=== PATIENT | female | born 1945 | race Asian ===

== ENCOUNTER 2018-03-05 18:28 | Emergency (ER) | payer MEDICARE, MEDICAID ==
[~2018-03-05] VITALS: Ht 149.9 cm; Wt 57.7 kg
[~2018-03-05 18:28] MED LIST: LEVO25TA9 PO; LISI-660 PO
[2018-03-05 20:32] LABS: BASOPHILS % (AUTO) 1.3 % (0.0-2.0); EOSINOPHILS % (AUTO) 2.9 % (1.0-6.0); HEMATOCRIT 38.8 % (36-46); HEMOGLOBIN 13.2 g/dL (12.0-16.0); LYMPHOCYTES # (AUTO) 2.3 K/uL (1.0-4.8); LYMPHOCYTES % (AUTO) 43.9 % (22.0-44.0); MEAN CORPUSCULAR HEMOGLOBIN 33.3 pg (26.0-34.0); MEAN CORPUSCULAR HGB CONC 34.1 G/dL (31.0-37.0); MEAN CORPUSCULAR VOLUME 98 fL (80-100); MONOCYTES # (AUTO) 0.5 K/uL (0.1-1.0); MONOCYTES % (AUTO) 9.2 % (2.0-9.0); NEUTROPHILS # (AUTO) 2.2 K/uL (1.8-7.7); NEUTROPHILS % (AUTO) 42.7 % (40.0-70.0); PLATELET COUNT (AUTO) 246 K/uL (150-450); RED BLOOD CELL COUNT(AUTO) 3.98 MIL/uL (4.00-5.20); RED CELL DISTRIBUTION WIDTH 14.4 % (11.5-14.5)
[2018-03-05 21:17] LABS: INR 0.9 (0.9-1.1); PROTHROMBIN TIME 9.6 SEC (9.4-11.6)
[2018-03-05 21:22] LABS: ANION GAP 6 mmol/L (8-16); CALCIUM, TOTAL 8.5 mg/dL (8.8-10.5); CARBON DIOXIDE 30 mmol/L (22-29); CHLORIDE 104 mmol/L (98-107); CREATININE 0.67 mg/dL (0.60-1.30); GLOMERULAR FILTR. RATE CALC > 60 mL/min (>60); GLUCOSE,RANDOM 101 mg/dL (70-110); POTASSIUM 3.7 mmol/L (3.5-5.1); SODIUM SERUM 140 mmol/L (136-145); UREA NITROGEN, BLOOD 15 mg/dL (7-18)
[2018-03-05 21:29] LABS: ALANINE AMINOTRANSFERASE 32 U/L (12-78); ALBUMIN 3.5 g/dL (3.4-5.0); ALKALINE PHOSPHATASE 85 U/L (46-116); ASPARTATE AMINOTRANSFERASE 28 U/L (15-37); BILIRUBIN,TOTAL 0.4 mg/dL (0.1-1.0); CREATINE KINASE, TOTAL ONLY 51 U/L (26-192); TOTAL PROTEIN, SERUM 7.6 g/dL (6.4-8.2)
[2018-03-05 22:19] LABS: APPEARANCE,URINE CLEAR (CLEAR); BILIRUBIN,URINE NEGATIVE (NEGATIVE); GLUCOSE, URINE (UA) NEGATIVE (NEGATIVE); KETONES,URINE NEGATIVE (NEGATIVE); LEUKOCYTE ESTERASE ,URINE TRACE (NEGATIVE); NITRATE,URINE NEGATIVE (NEGATIVE); OCCULT BLOOD,URINE TRACE (NEGATIVE); PH,URINE 6.5 (5.0-8.0); PROTEIN,URINE NEGATIVE (NEGATIVE); UROBILINOGEN,URINE 0.2 mg/dL (<=1.0)
[2018-03-05 22:32] LABS: BACTERIA,URINE None Seen /HPF (None Seen); RBC,URINE 0-2 /HPF (0-2); SQUAMOUS EPITHELIAL CELL,UR Few /LPF (None Seen); WBC,URINE 0-2 /HPF (0-5)
[2018-03-06 02:15] VITALS: BP 155/74
== END 2018-03-06 02:19 | disposition home or self-care (01) ==
LOC: EMS 18:28
DX: R07.9 Chest pain, unspecified (principal); I10 Essential (primary) hypertension; E03.9 Hypothyroidism, unspecified; K21.9 Gastro-esophageal reflux disease without esophagitis; Z88.0 Allergy status to penicillin
CPT/HCPCS: 93005

== ENCOUNTER 2022-07-02 02:07 | Emergency (ER) | payer MEDICARE, MEDICAID ==
[~2022-07-02] VITALS: Ht 149.9 cm; Wt 58.8 kg
[~2022-07-02 02:07] MED LIST changes: -LISI-660 PO
[2022-07-02] MEDS ORDERED: FERR325T27 PO (02:15)
[2022-07-02] MEDS ORDERED: LISI-894 PO (02:15)
[2022-07-02] MEDS ORDERED: CloNIDine HCL 0.1 MG TABLET PO ONE (04:45)
[2022-07-02 05:07] LABS: BASOPHILS % (AUTO) 0.7 % (0.0-2.0); HEMATOCRIT 35.4 % (36-46); HEMOGLOBIN 11.9 g/dL (12.0-16.0); LYMPHOCYTES % (AUTO) 36.7 % (22.0-44.0); MEAN CORPUSCULAR HEMOGLOBIN 33.8 pg (26.0-34.0); MEAN CORPUSCULAR HGB CONC 33.6 G/dL (31.0-37.0); MEAN CORPUSCULAR VOLUME 101 fL (80-100); MONOCYTES # (AUTO) 0.4 K/uL (0.1-1.0); NEUTROPHILS # (AUTO) 2.8 K/uL (1.8-7.7); NEUTROPHILS % (AUTO) 51.6 % (40.0-70.0); PLATELET COUNT (AUTO) 220 K/uL (150-450); RED BLOOD CELL COUNT(AUTO) 3.51 MIL/uL (4.00-5.20); RED CELL DISTRIBUTION WIDTH 16.7 % (11.5-14.5)
[2022-07-02 05:23] LABS: ANION GAP 4 mmol/L (8-16); CALCIUM, TOTAL 9.1 mg/dL (8.8-10.5); CARBON DIOXIDE 29 mmol/L (22-29); CHLORIDE 103 mmol/L (98-107); CREATININE 0.82 mg/dL (0.60-1.30); GLOMERULAR FILTR. RATE CALC > 60 mL/min (>60); GLUCOSE,RANDOM 109 mg/dL (70-110); POTASSIUM 4.1 mmol/L (3.5-5.1); SODIUM SERUM 136 mmol/L (136-145); UREA NITROGEN, BLOOD 23 mg/dL (7-18)
[2022-07-02 05:29] LABS: ALBUMIN 3.5 g/dL (3.4-5.0); ALKALINE PHOSPHATASE 71 U/L (46-116); ASPARTATE AMINOTRANSFERASE 23 U/L (15-37); BILIRUBIN,TOTAL 0.3 mg/dL (0.1-1.0); CREATINE KINASE, TOTAL ONLY 45 U/L (26-192); TOTAL PROTEIN, SERUM 7.1 g/dL (6.4-8.2)
[2022-07-02 05:41] LABS: ALANINE AMINOTRANSFERASE 24 U/L (12-78)
[2022-07-02 05:56] LABS: B-TYPE NATRIURETIC PEPTIDE 35 pg/mL (0-100)
[2022-07-02 07:33] VITALS: BP 116/55
== END 2022-07-02 07:55 | disposition home or self-care (01) ==
LOC: EMS 02:10
DX: I10 Essential (primary) hypertension (principal); R07.89 Other chest pain; E03.9 Hypothyroidism, unspecified; Z90.49 Acquired absence of other specified parts of digestive tract; Z90.710 Acquired absence of both cervix and uterus; Z98.890 Other specified postprocedural states; Z88.8 Allergy status to other drugs, medicaments and biological substances
CPT/HCPCS: 71045; 80053; 82550; 83880; 84484; 85025; 93005; 99285; 36415-L1; 36415-TC

== ENCOUNTER 2024-02-06 19:55 | Emergency (ER) | payer MEDICARE, MEDICAID ==
[~2024-02-06] VITALS: Ht 149.9 cm; Wt 55.0 kg
[~2024-02-06 19:55] MED LIST changes: +FERR325T27 PO; +LISI-894 PO
[2024-02-06 20:24] LABS: COVID AG,FIA SOURCE NASAL SWAB
[2024-02-06 20:47] LABS: INFLUENZA TYPE A NEGATIVE FOR TYPE A (NEGATIVE)
[2024-02-06 21:27] LABS: INFLUENZA TYPE B POSITIVE FOR TYPE B (NEGATIVE); SARS-COV2 (COVID) ANTIGEN,FIA Positive (Negative)
[2024-02-06] MEDS: ACETAMINOPHEN/CODEINE 300-30 MG TABLET PO ONE (21:41)
[2024-02-06] MEDS ORDERED: AZIT250T9 PO (21:59)
[2024-02-06] MEDS ORDERED: BENZ-227 PO (21:59)
[2024-02-06] MEDS ORDERED: ACET-2080 PO (22:02)
[2024-02-06 22:21] VITALS: BP 145/69; PULSE 89; RESP 18; TEMP 97.9; O2SAT 99
== END 2024-02-06 23:00 | disposition home or self-care (01) ==
LOC: EMS 19:55
DX: U07.1 COVID-19 (principal); R05.9 Cough, unspecified; I10 Essential (primary) hypertension; E03.9 Hypothyroidism, unspecified; K21.9 Gastro-esophageal reflux disease without esophagitis; Z88.0 Allergy status to penicillin; Z90.49 Acquired absence of other specified parts of digestive tract; Z90.710 Acquired absence of both cervix and uterus; Z79.899 Other long term (current) drug therapy
CPT/HCPCS: 71046; 87804; 99284

== ENCOUNTER 2024-02-12 18:32 | Emergency (ER) | payer MEDICARE, MEDICAID ==
[~2024-02-12] VITALS: Ht 149.9 cm; Wt 55.0 kg
[~2024-02-12 18:32] MED LIST changes: +ACET-2080 PO; +AZIT250T9 PO; +BENZ-227 PO
[2024-02-12 18:43] VITALS: BP 144/78; PULSE 92; RESP 18; TEMP 98.4; O2SAT 97
[2024-02-14] MEDS ORDERED: 0.9% SODIUM CHLORIDE 5 ML NEB SOLUTION NEB ONE (06:57)
[2024-02-14] MEDS ORDERED: ALBUTEROL SULFATE 2.5 MG/0.5 ML NEB SOLUTION NEB ONE (06:57)
[2024-02-15] MEDS ORDERED: AMLO-257 PO (12:09)
[2024-02-15] MEDS ORDERED: LEVO-72 PO (12:10)
[2024-02-21] MEDS ORDERED: LORazepam 2 MG/ML VIAL ONE (21:21)
[2024-02-21] MEDS ORDERED: HALOPERIDOL LACTATE 5 MG/ML VIAL ONE (21:21)
[2024-02-21] MEDS ORDERED: DiphenhydrAMINE HCL 50 MG/ML VIAL ONE (21:21)
== END 2024-02-12 19:00 | disposition left against medical advice (07) ==
LOC: EMS 18:33
DX: I10 Essential (primary) hypertension (principal); Z53.21 Procedure and treatment not carried out due to patient leaving prior to being seen by health care provider
CPT/HCPCS: J1200; J1630; J2060

== ENCOUNTER 2024-03-08 19:51 | Emergency (ER) | payer MEDICARE, MEDICAID ==
[~2024-03-08] VITALS: Ht 149.9 cm; Wt 55.0 kg
[~2024-03-08 19:51] MED LIST changes: +AMLO-257 PO; +LEVO-72 PO
[2024-03-08 19:58] VITALS: TEMP 97.8
[2024-03-08 21:20] VITALS: BP 163/72; PULSE 86; RESP 20; O2SAT 100
== END 2024-03-08 22:02 | disposition left against medical advice (07) ==
LOC: EMS 19:51
DX: I10 Essential (primary) hypertension (principal); Z53.21 Procedure and treatment not carried out due to patient leaving prior to being seen by health care provider